=== PATIENT | female | born 1985 | race Caucasian/White ===

== ENCOUNTER 2018-08-23 13:22 | Emergency (ER) | payer MEDICAID ==
[~2018-08-23] VITALS: Ht 154.9 cm; Wt 54.4 kg
[2018-08-23 13:36] VITALS: BP 104/72
--- NOTE | 2018-08-23 13:36 | NUR ---
PT TRIAGED AND SENT TO ER LOBBY.
--- NOTE | 2018-08-23 14:10 | NUR ---
PT AMBULATED TO BED 8
--- NOTE | 2018-08-23 14:12 | NUR ---
BIB SELF.AAO X4. PT STATES HER BLOOD SUGAR WAS TOO HIGH TO READ BEFORE ARRIVAL, ON ARRIVAL SUGAR IS 421. PT CAME FROM [facility]. PT FEELS VERY TIRED. SKIN DRY TO TOUCH. HOB UP. BED SIDE RAILS X 1 UP. ON LOW BED POSITION, LOCKED. ER MADE AWARE OF PT STATUS.
[2018-08-23] MEDS ORDERED: NACL 0.9% 1,000 ML IV SCH (14:54)
[2018-08-23] MEDS ORDERED: NACL 0.9% 2,000 ML IV SCH (14:54)
[2018-08-23] MEDS ORDERED: THIAMINE 200 MG/2 ML VIAL IM ONE (14:55)
[2018-08-23] MEDS ORDERED: INSULIN REGULAR, HUMAN 100 UNIT/ML VIAL IVP ONE (14:55)
[2018-08-23 15:39] LABS: BASOPHILS % (AUTO) 0.3 % (0.0-2.0); EOSINOPHILS # (AUTO) 0.1 K/uL (0-0.4); HEMATOCRIT 35.5 % (36-48); HEMOGLOBIN 12.3 g/dL (12.0-16.0); LYMPHOCYTES # (AUTO) 2.1 K/uL (2.5-16.5); LYMPHOCYTES % (AUTO) 26.6 % (20.5-51.1); MEAN CORPUSCULAR HEMOGLOBIN 31 pg (27-31); MEAN CORPUSCULAR HGB CONC 35 g/dL (33-37); MEAN CORPUSCULAR VOLUME 88.9 fL (80-94); MONOCYTES # (AUTO) 0.1 K/uL (0.8-1.0); MONOCYTES % (AUTO) 1.9 % (1.7-9.3); NEUTROPHILS # (AUTO) 5.5 K/uL (1.8-7.7); NEUTROPHILS % (AUTO) 70.2 % (42.2-75.2); PLATELET COUNT (AUTO) 182 K/uL (140-450); RED CELL DISTRIBUTION WIDTH 13.4 % (11.6-13.7); WHITE BLOOD COUNT (AUTO) 7.9 K/uL (4.8-10.8)
[2018-08-23 15:41] LABS: APPEARANCE,URINE CLEAR (CLEAR); BILIRUBIN,URINE NEGATIVE (NEGATIVE); BLOOD, URINE 2+ (NEGATIVE); COLOR,URINE YELLOW (YELLOW); LEUKOCYTE ESTERASE ,URINE NEGATIVE (NEGATIVE); NITRITE, URINE NEGATIVE (NEGATIVE); UGLUCOSE 3+ (NEGATIVE)
[2018-08-23 15:45] LABS: WBC,URINE 0-5 /HPF (0-5)
[2018-08-23 15:47] LABS: ANION GAP 11.2 (8-16); CARBON DIOXIDE 26.6 mmol/L (21-32); CHLORIDE 100 mmol/L (98-107); CREATININE 0.6 mg/dL (0.6-1.3); GFR ARICAN-AMERICAN 148 mL/min (>90); GLUCOSE 312 mg/dL (74-106); POTASSIUM 3.8 mmol/L (3.5-5.1); SODIUM SERUM 134 mmol/L (136-145); UREA NITROGEN, BLOOD 11 mg/dL (7-18)
[2018-08-23 15:49] LABS: ACETONE, SERUM NEGATIVE (NEGATIVE)
[2018-08-23 15:53] LABS: ALBUMIN 2.8 g/dL (3.4-5.0); AMYLASE 40 U/L (25-115); ASPARTATE AMINOTRANSFERASE 12 U/L (15-37); LIPASE 291 U/L (73-393); MAGNESIUM 1.7 mg/dL (1.8-2.4); TOTAL BILIRUBIN 0.2 mg/dL (0.0-1.0)
[2018-08-23 16:03] LABS: BARBITURATE, URINE NEG. ng/ml (NEG <=200); BENZODIAZEPINE, URINE NEG. ng/mL (NEG <=200); CANNABINOID, URINE NEG. ng/mL (NEG <=50); COCAINE, URINE NEG. ng/mL (NEG <=300); OPIATE, URINE NEG. ng/mL (NEG <=2000); PHENCYCLIDINE SCREEN,URINE NEG. ng/mL (NEG <=25)
--- NOTE | 2018-08-23 16:45 | NUR ---
Blood sugar 62, Dr Adams notified, Snacks, orange juice and diabetic diet given as ordered
--- NOTE | 2018-08-23 17:29 | NUR ---
BLOOD SUGAR RECHECKED, 89. DR ARELLANO NOTIFIED.
[2018-08-23 18:04] VITALS: BP 104/72
--- NOTE | 2018-08-23 18:04 | NUR ---
Patient discharged with v/s stable. Written and verbal after care instructions given and explained. Patient verbalized understanding. Ambulatory with steady gait. All questions addressed prior to discharge. Advised to follow up with PMD.
--- NOTE | 2018-08-23 18:04 | NUR ---
PT WAS USING THE FACILITY TELEPHONE TO CALL FOR A RIDE BACK TO THE [facility] AND TOOK OFF WITHOUT THE IV TAKEN OFF. NOTIFIED FORM SETTER SUPERVISOR. CALLED [facility] AND LEFT A MESSAGE TO CALL BACK ED.
--- NOTE | 2018-08-23 18:10 | NUR ---
CALLED THE NUMBER ON PT CHART [phone] AND SPOKE TO PT'S MOTHER. PT'S MOTHER STATES THAT SHE DOESN'T KNOW WHERE THE PT'S WHEREABOUTS.
--- NOTE | 2018-08-23 18:33 | NUR ---
CALLED [place] [employer] . SPOKE TO SENIOR MANAGER ASSET PROTECTION [phone] TO REPORT THAT THE PT FROM [facility] [place] ( [address], [place] [address]) LEFT [facility] ED WITH AN IV ON RAC. REQUESTED FOR AN ESCORT TO GO TO TO HAVE THE PT, ANIRUDH CROFT, TAKEN BACK TO ED. PER DISPATCHER SHE CANNOT GIVE HER NAME OVER THE PHONE. PER DISPATCHER WILL F/U REPORT.
--- NOTE | 2018-08-23 18:52 | NUR ---
JIGAR DISPATCHERBRODY, CALLED BACK TO INFORM THAT [facility] CANNOT RELEASE ANY INFORMATION OF ANY PATIENTS FROM THE FACILITY. PER DISPATCHER THEY WILL LOOK AROUND FOR THE PT. PT CLOTHING DESCRIPTION WAS GIVEN TO THE DISPATCHER AND THE LOCATION OF THE IV. INCIDENT # [id number]
== END 2018-08-23 18:04 | disposition home or self-care (01) ==
LOC: MED 13:22
DX: E11.65 Type 2 diabetes mellitus with hyperglycemia (principal)
CPT/HCPCS: 36415; 36600; 74176; 80053; 80305; 81001; 81025; 82009; 82150; 82803; 82948; 83036; 83605; 83690; 83735; 85025; 96361; 96372; 96374; 99284; G0482; J1815; J3411; J7030